=== PATIENT | male | born 1960 | race African-American/Black ===

== ENCOUNTER 2020-06-10 05:33 | Inpatient (IN) | payer OTHER ==
[~2020-06-10] VITALS: Ht 165.1 cm; Wt 102.2 kg
[2020-06-10] MEDS ORDERED: SODIUM CHLORIDE FLUSH 10ML SYR IVF ONE (06:00)
[2020-06-10] MEDS ORDERED: MAALOX/HYOSCYAMINE/LIDOCAINE 45 ML BTL PO ONE (06:00)
[2020-06-10] MEDS ORDERED: ONDANSETRON 2MG/ML, 2ML IVPush ONE (06:00)
[2020-06-10] MEDS ORDERED: MAALOX/HYOSCYAMINE/LIDOCAINE 45 ML BTL ONE (06:05)
[2020-06-10] MEDS ORDERED: ONDANSETRON 2MG/ML, 2ML ONE (06:05)
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
--- NOTE | 2020-06-10 06:35 | NUR ---
PT INCONTINENT OF BOWEL AND BLADDER, PT SKIN CLEANED OF BM BY THIS RN ON ADMISSION. ALL SKIN INTACT. PT PLACED ON NEW ABSORBENT PAD. NEW STATLOCK APPLIED FOR SUPRAPUBIC CRUZ. UA COLLECTED AND SENT TO LAB. LABS DRAWN, INCLUDING X2 SETS OF BLOOD CULTURES. PT PASSED DYSPHAGIA SCREEN PRIOR TO MEDICATION ADMINISTRATION. MEDICATED PER JAN, TOLERATED WELL. PT REPORTS DECREASED SHOULDER PAIN WITH POSITIONING. PT CALM AND COOPERATIVE. MONITORING IN PLACE, CALL LIGHT WITHIN REACH, ALL SAFETY MEASURES IN PLACE.
[2020-06-10 06:44] LABS: BASOPHILS # (AUTO) 0.04 x10^3/uL (0-0.1); BASOPHILS % (AUTO) 0 % (0-1); EOSINOPHILS # (AUTO) 0.19 x10^3/uL (0-0.4); EOSINOPHILS % (AUTO) 2 % (1-7); LYMPHOCYTES # (AUTO) 1.42 x10^3/uL (1-3.4); LYMPHOCYTES % (AUTO) 12 % (22-44); MD NO; MEAN CORPUSCULAR HEMOGLOBIN 28.3 pg (27.5-34.5); MEAN CORPUSCULAR HGB CONC 33.1 g/dL (33.2-36.2); MEAN CORPUSCULAR VOLUME 85.3 fL (81-97); MEAN PLATELET VOLUME 7.9 fL (7.4-10.4); MONOCYTES # (AUTO) 0.43 x10^3/uL (0.2-0.8); MONOCYTES % (AUTO) 4 % (2-9); NEUTROPHILS # (AUTO) 9.66 x10^3/uL (1.8-6.8); NEUTROPHILS % (AUTO) 82 % (42-75); PLATELET COUNT 235 x10^3/uL (130-400); RED BLOOD COUNT 5.27 x10^6/uL (4.38-5.82); RED CELL DISTRIBUTION WIDTH 14.4 % (9.4-14.8)
[2020-06-10] MEDS ORDERED: ZOLP5TAB PO (06:47)
[2020-06-10] MEDS ORDERED: NITR1OIN TP (06:47)
[2020-06-10] MEDS ORDERED: LACT1CAP4 PO (06:47)
[2020-06-10] MEDS ORDERED: DICL100T PO ×2 (06:47)
[2020-06-10] MEDS ORDERED: AMIT10TA PO (06:47)
[2020-06-10] MEDS ORDERED: GABA-826 PO (06:47)
[2020-06-10] MEDS ORDERED: ACET325C6 PO (06:47)
[2020-06-10] MEDS ORDERED: [UNRECOGNIZED DRUG - CODE] PO (06:47)
[2020-06-10] MEDS ORDERED: OXYC10SY PO (06:47)
[2020-06-10] MEDS ORDERED: FAMO-79 PO (06:47)
[2020-06-10] MEDS ORDERED: MIDO5TAB4 PO (06:47)
[2020-06-10] MEDS ORDERED: BACL5TAB PO (06:47)
[2020-06-10] MEDS ORDERED: PREG165T PO (06:47)
[2020-06-10] MEDS ORDERED: CEFTRIAXONE PMX 1GM/50ML 50 ML ONE (06:48)
[2020-06-10 06:51] LABS: MICROSCOPIC INDICATED
[2020-06-10 06:56] LABS: ALANINE AMINOTRANSFERASE 41 U/L (12-78); ALBUMIN 3.7 g/dL (3.4-5.0); ANION GAP 7 mmol/L (5-15); CALCIUM 8.5 mg/dL (8.5-10.1); CHLORIDE 105 mmol/L (98-107); CREATININE 1.32 mg/dL (0.7-1.3)
--- NOTE | 2020-06-10 06:57 | NUR ---
REPORT GIVEN TO JIM TERAN. PT RESTING ON [facility], UPDATED ON POC.
[2020-06-10 07:00] LABS: ALKALINE PHOSPHATASE 93 U/L (45-117); BILIRUBIN,TOTAL 0.3 mg/dL (0.2-1.0); TOTAL PROTEIN 7.8 g/dL (6.4-8.2); TROPONIN I < 0.015 ng/mL (0.000-0.045)
[2020-06-10] MEDS ORDERED: AZITHROMYCIN 500 MG in SODIUM CHLORIDE 0.9% 250 ML IVPB ONE (07:00)
[2020-06-10] MEDS ORDERED: CEFTRIAXONE PMX 1GM/50ML 50 ML IVPB ONE (07:00)
--- NOTE | 2020-06-10 07:02 | NUR ---
REPORT FROM [facility]. PT RESTING, VSS
[2020-06-10] MEDS ORDERED: OMNIPAQUE 350 MG/ML, 100ML BOTTLE ONE (07:25)
--- NOTE | 2020-06-10 08:00 | NUR ---
ASSISTED PT W WATER. VSS. NO NEEDS A THIS TIME
[2020-06-10] MEDS ORDERED: SODIUM CHLORIDE FLUSH 10ML SYR IVF PRN (08:30)
[2020-06-10] MEDS ORDERED: DIPHENHYDRAMINE 25 MG CAPSULE PO PRN (09:00)
[2020-06-10] MEDS ORDERED: hydrALAzine 20 MG/ML, 1ML IVPush PRN (09:00)
[2020-06-10] MEDS ORDERED: POLYETHYLENE GLYCOL 17 GM PACKET PO PRN (09:00)
[2020-06-10] MEDS ORDERED: BISACODYL 10 MG SUPP PR PRN (09:00)
[2020-06-10] MEDS ORDERED: ACETAMINOPHEN 325 MG TABLET PO PRN (09:00)
--- NOTE | 2020-06-10 10:01 | NUR ---
GAVE PT MEAL TRAY. PT DOES NOT NEED ASSISTANCE W EATING.
[2020-06-10] MEDS ORDERED: FAMOTIDINE 20 MG TABLET ONE (10:03)
[2020-06-10] MEDS: FAMOTIDINE 20 MG TABLET PO SCH (10:06)
[2020-06-10] MEDS: LACTATED RINGERS 1,000 ML IV SCH (10:06)
[2020-06-10] MEDS: LACTULOSE 10 GM/15 ML UDC PO SCH ×2 (10:06→21:00)
[2020-06-10] MEDS ORDERED: MORPHINE SULFATE 4 MG/ML, 1ML ONE (10:18)
[2020-06-10] MEDS ORDERED: MORPHINE SULFATE 4 MG/ML, 1ML IVPush PRN (10:30)
--- NOTE | 2020-06-10 10:48 | NUR ---
PT CO PAIN IN NECK AND SHOULDERS WHICH IS CHRONIC. MEDICATED FOR PAIN.
--- NOTE | 2020-06-10 11:02 | NUR ---
PT RELIEVED OF PAIN, RESTING W EYES CLOSED. VSS
--- NOTE | 2020-06-10 11:22 | NUR ---
PT TRANSFERED TO HOSPITAL BED FOR COMFORT.
--- NOTE | 2020-06-10 13:32 | NUR ---
TASK RN: MEAL TRAY ORDERED FOR PT. PT CURRENTLY DOZING IN QUIET, DARK ROOM. PT AWARE WE ARE WAITING FOR ADMISSION. PT ON CONT BP AND SPO2 MONITORS. CALL LIGHT WITHIN REACH. WILL CONT TO MONITOR PT.
--- NOTE | 2020-06-10 14:36 | NUR ---
REPORT TO JOSE R
[2020-06-10 14:57] VITALS: BP 120/84
[2020-06-10 18:17] VITALS: BP 118/81
[2020-06-10 19:15] VITALS: BP 154/99
[2020-06-10] MEDS: AMITRIPTYLINE 10 MG TABLET PO SCH (20:41)
[2020-06-11 00:16] VITALS: BP 137/87
[2020-06-11] MEDS: LACTATED RINGERS 1,000 ML IV SCH (00:18)
[2020-06-11] MEDS: PINK LADY ENEMA 490 ML BOTTLE PR SCH ×2 (00:18→07:51)
[2020-06-11 06:04] LABS: BASOPHILS # (AUTO) 0.03 x10^3/uL (0-0.1); BASOPHILS % (AUTO) 0 % (0-1); EOSINOPHILS # (AUTO) 0.17 x10^3/uL (0-0.4); EOSINOPHILS % (AUTO) 2 % (1-7); LYMPHOCYTES # (AUTO) 1.59 x10^3/uL (1-3.4); LYMPHOCYTES % (AUTO) 20 % (22-44); MD NO; MEAN CORPUSCULAR HGB CONC 32.5 g/dL (33.2-36.2); MEAN CORPUSCULAR VOLUME 86.3 fL (81-97); MEAN PLATELET VOLUME 7.8 fL (7.4-10.4); MONOCYTES # (AUTO) 0.44 x10^3/uL (0.2-0.8); MONOCYTES % (AUTO) 5 % (2-9); NEUTROPHILS # (AUTO) 5.88 x10^3/uL (1.8-6.8); NEUTROPHILS % (AUTO) 73 % (42-75); PLATELET COUNT 214 x10^3/uL (130-400); RED BLOOD COUNT 4.77 x10^6/uL (4.38-5.82); RED CELL DISTRIBUTION WIDTH 13.9 % (9.4-14.8)
[2020-06-11 06:06] LABS: ANION GAP 6 mmol/L (5-15); CALCIUM 8.1 mg/dL (8.5-10.1); CHLORIDE 109 mmol/L (98-107); CREATININE 0.86 mg/dL (0.7-1.3)
[2020-06-11] MEDS: LACTULOSE 10 GM/15 ML UDC PO SCH ×2 (07:51→20:24)
[2020-06-11] MEDS: FAMOTIDINE 20 MG TABLET PO SCH (07:59)
[2020-06-11] MEDS: CEFTRIAXONE PMX 1GM/50ML 50 ML IV SCH (07:59)
[2020-06-11 08:04] VITALS: BP 161/77
[2020-06-11 15:19] VITALS: BP 149/96
[2020-06-11 18:33] VITALS: BP 150/88
[2020-06-11] MEDS: AMITRIPTYLINE 10 MG TABLET PO SCH (20:23)
[2020-06-12 00:12] VITALS: BP 151/92
[2020-06-12 06:47] VITALS: BP 142/82
[2020-06-12] MEDS ORDERED: LACT10SO24 PO (08:11)
[2020-06-12] MEDS ORDERED: BISA10SU4 PR (08:11)
[2020-06-12] MEDS ORDERED: CEPH-368 PO (08:13)
[2020-06-12] MEDS: CEFTRIAXONE PMX 1GM/50ML 50 ML IV SCH (08:16)
[2020-06-12] MEDS: PINK LADY ENEMA 490 ML BOTTLE PR SCH (08:18)
[2020-06-12 08:31] VITALS: BP 155/95
[2020-06-12] MEDS: FAMOTIDINE 20 MG TABLET PO SCH (10:41)
[2020-06-12] MEDS: LACTULOSE 10 GM/15 ML UDC PO SCH (10:41)
[2020-06-12 13:01] VITALS: BP 167/100
== END 2020-06-12 16:21 | disposition home or self-care (01) | DRG 698 ==
LOC: ED 06:39 → SUATTDRO 08:36 → EDIP 08:37 → 3N 14:46
PROVIDERS: ADMIT Hospitalist; ATTEND Hospitalist
DX: T83.511A Infection and inflammatory reaction due to indwelling urethral catheter, initial encounter (principal); G82.50 Quadriplegia, unspecified; N17.0 Acute kidney failure with tubular necrosis; J18.9 Pneumonia, unspecified organism; J98.11 Atelectasis; J47.0 Bronchiectasis with acute lower respiratory infection; E86.0 Dehydration; F17.210 Nicotine dependence, cigarettes, uncomplicated; K59.00 Constipation, unspecified; N30.90 Cystitis, unspecified without hematuria; B95.2 Enterococcus as the cause of diseases classified elsewhere; G90.9 Disorder of the autonomic nervous system, unspecified; Y84.6 Urinary catheterization as the cause of abnormal reaction of the patient, or of later complication, without mention of misadventure at the time of the procedure; Z79.899 Other long term (current) drug therapy
CPT/HCPCS: 36415; 71045; 74177; 80048; 80053; 81001; 83605; 83690; 83880; 84484; 85025; 87040; 87077; 87086; 87186; 93005; 96365; 96375; 99285; G0378; J0456; J0696; J2405; Q9967; J2270; J7050; J7120; Q0163

== ENCOUNTER 2020-08-01 10:52 | Emergency (ER) | payer OTHER ==
[~2020-08-01] VITALS: Ht 165.1 cm; Wt 92.3 kg
[~2020-08-01 10:52] MED LIST: ACET325C6 PO; AMIT10TA PO; BACL5TAB PO; BISA10SU4 PR; CEPH-368 PO; DICL100T PO; FAMO-79 PO; GABA-826 PO; LACT10SO24 PO; LACT1CAP4 PO; MIDO5TAB4 PO; NITR1OIN TP; OXYC10SY PO; PREG165T PO; ZOLP5TAB PO; [UNRECOGNIZED DRUG - CODE] PO
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
[2020-08-01] MEDS ORDERED: SODIUM CHLORIDE FLUSH 10ML SYR IVF ONE (11:30)
[2020-08-01 12:10] LABS: BASOPHILS # (AUTO) 0.03 x10^3/uL (0-0.1); BASOPHILS % (AUTO) 0 % (0-1); EOSINOPHILS # (AUTO) 0.14 x10^3/uL (0-0.4); EOSINOPHILS % (AUTO) 2 % (1-7); LYMPHOCYTES # (AUTO) 1.46 x10^3/uL (1-3.4); LYMPHOCYTES % (AUTO) 16 % (22-44); MD NO; MEAN CORPUSCULAR HEMOGLOBIN 28.2 pg (27.5-34.5); MEAN CORPUSCULAR HGB CONC 32.3 g/dL (33.2-36.2); MEAN PLATELET VOLUME 7.6 fL (7.4-10.4); MONOCYTES % (AUTO) 4 % (2-9); NEUTROPHILS # (AUTO) 7.12 x10^3/uL (1.8-6.8); NEUTROPHILS % (AUTO) 78 % (42-75); PLATELET COUNT 260 x10^3/uL (130-400); RED BLOOD COUNT 5.59 x10^6/uL (4.38-5.82); RED CELL DISTRIBUTION WIDTH 15.3 % (9.4-14.8)
--- NOTE | 2020-08-01 12:13 | NUR ---
PT BACK FROM RAD
[2020-08-01 12:15] LABS: ALBUMIN 3.6 g/dL (3.4-5.0); ANION GAP 8 mmol/L (5-15); CALCIUM 8.6 mg/dL (8.5-10.1); CHLORIDE 110 mmol/L (98-107)
[2020-08-01 12:20] LABS: ALANINE AMINOTRANSFERASE 78 U/L (12-78); ALKALINE PHOSPHATASE 111 U/L (45-117); BILIRUBIN,TOTAL 0.3 mg/dL (0.2-1.0); CREATININE 0.93 mg/dL (0.7-1.3); TOTAL PROTEIN 7.8 g/dL (6.4-8.2)
[2020-08-01 12:55] LABS: MICROSCOPIC INDICATED
[2020-08-01 13:04] VITALS: BP 117/55
== END 2020-08-01 15:10 | disposition home or self-care (01) ==
LOC: ED 11:44
DX: K59.00 Constipation, unspecified (principal); N30.01 Acute cystitis with hematuria; K56.0 Paralytic ileus; G82.20 Paraplegia, unspecified; F17.210 Nicotine dependence, cigarettes, uncomplicated
CPT/HCPCS: 36415; 74022; 80053; 81001; 85025; 87077; 87086; 87186; 99284

== ENCOUNTER 2020-09-11 21:34 | Inpatient (IN) | payer OTHER ==
[~2020-09-11] VITALS: Ht 175.3 cm; Wt 110.5 kg
[2020-09-11 22:14] LABS: BASOPHILS % (AUTO) 1 % (0-1); EOSINOPHILS % (AUTO) 4 % (1-7); LYMPHOCYTES % (AUTO) 29 % (22-44); MEAN CORPUSCULAR HEMOGLOBIN 28.7 pg (27.5-34.5); MEAN CORPUSCULAR HGB CONC 33.4 g/dL (33.2-36.2); MEAN PLATELET VOLUME 7.3 fL (7.4-10.4); MONOCYTES % (AUTO) 8 % (2-9); NEUTROPHILS % (AUTO) 58 % (42-75); PLATELET COUNT 230 x10^3/uL (130-400); RED BLOOD COUNT 4.98 x10^6/uL (4.38-5.82); RED CELL DISTRIBUTION WIDTH 14.5 % (9.4-14.8)
[2020-09-11 22:15] LABS: MD NO
[2020-09-11 22:26] LABS: ALANINE AMINOTRANSFERASE 38 U/L (12-78); ALBUMIN 3.3 g/dL (3.4-5.0); ANION GAP 4 mmol/L (5-15); CALCIUM 8.5 mg/dL (8.5-10.1); CHLORIDE 107 mmol/L (98-107); CREATININE 0.92 mg/dL (0.7-1.3)
[2020-09-11 22:31] LABS: ALKALINE PHOSPHATASE 108 U/L (45-117); BILIRUBIN,TOTAL 0.1 mg/dL (0.2-1.0); TOTAL PROTEIN 6.9 g/dL (6.4-8.2); TROPONIN I < 0.015 ng/mL (0.000-0.045)
--- NOTE | 2020-09-11 22:51 | NUR ---
PT RESTING IN [facility], NO COMPLAINTS AT THIS TIME.
--- NOTE | 2020-09-11 22:53 | NUR ---
PT'S DAUGHTER UPDATED PER PT'S REQUEST. STAR (DAUGHTER) - [phone]
--- NOTE | 2020-09-11 22:58 | NUR ---
THIS RN ATTEMPTED MEDICATION RECONCILE WITH PT AND DAUGHTER, BOTH ARE POOR HISTORIANS. PT'S DAUGHTER STATES "HE IS ON LIKE 30 PILLS, BUT I DON'T REMEMBER THEM ALL".
--- NOTE | 2020-09-11 22:59 | NUR ---
PER PT'S DAUGHTER SHE TOOK PT'S BP AND FOUND IT TO BE 70S SYSTOLIC AND PT TO BE "SLEEPY". PT'S DAUGHTER GAVE PATIENT UNKNOWN DOSE OF MIDODRINE AND BP WENT UP TO 80S SYSTOLIC. PER PT'S DAUGHTER SHE THEN CALLED EMS. PER EMS THEY GAVE PT 0.5 OF NARCAN DUE TO A GCS OF 6, AFTER NARCAN HE BECAME A&OX4.
--- NOTE | 2020-09-11 23:35 | NUR ---
PT BACK FROM CT VIA [facility]. PT RESTING IN [facility], NO COMPLAINTS AT THIS TIME.
[2020-09-12 00:17] LABS: MICROSCOPIC INDICATED
[2020-09-12 00:28] LABS: AMPHETAMINE SCREEN, URINE Negative (Negative); BARBITURATE SCREEN, URINE Negative (Negative); BENZODIAZEPINE SCREEN, URINE Negative (Negative); CANNABINOID SCREEN, URINE Negative (Negative); COCAINE SCREEN, URINE Negative (Negative); METHADONE SCREEN, URINE Negative (Negative); OPIATE SCREEN, URINE Negative (Negative)
--- NOTE | 2020-09-12 00:47 | NUR ---
PT RESTING IN [facility], NO OTHER COMPLAINTS AT THIS TIME.
[2020-09-12] MEDS ORDERED: PROMETHAZINE 25 MG/ML, 1ML IM PRN (01:30)
[2020-09-12] MEDS ORDERED: ONDANSETRON ODT 4 MG PO PRN (01:30)
[2020-09-12] MEDS ORDERED: ONDANSETRON 2MG/ML, 2ML IVPush PRN (01:30)
[2020-09-12] MEDS ORDERED: BISACODYL 10 MG SUPP PR PRN (01:30)
[2020-09-12] MEDS ORDERED: ACETAMINOPHEN 325 MG TABLET PO PRN (01:30)
[2020-09-12] MEDS ORDERED: POLYETHYLENE GLYCOL 17 GM PACKET PO PRN (01:30)
[2020-09-12 03:44] VITALS: BP 127/80
[2020-09-12] MEDS: ERTAPENEM 1 GM in SODIUM CHLORIDE 0.9% 50 ML IV SCH (03:49)
[2020-09-12] MEDS: ENOXAPARIN 40 MG/0.4 ML SQ SCH (03:49)
[2020-09-12] MEDS: SODIUM CHLORIDE 0.9% 1,000 ML IV SCH ×2 (03:50→11:20)
[2020-09-12] MEDS: OXYcodone IR 5MG TABLET PO PRN ×4 (05:52→20:53)
[2020-09-12 06:09] LABS: BASOPHILS % (AUTO) 1 % (0-1); EOSINOPHILS % (AUTO) 3 % (1-7); LYMPHOCYTES % (AUTO) 17 % (22-44); MEAN CORPUSCULAR HEMOGLOBIN 28.2 pg (27.5-34.5); MEAN PLATELET VOLUME 7.4 fL (7.4-10.4); MONOCYTES % (AUTO) 5 % (2-9); NEUTROPHILS % (AUTO) 75 % (42-75); PLATELET COUNT 237 x10^3/uL (130-400); RED BLOOD COUNT 5.08 x10^6/uL (4.38-5.82); RED CELL DISTRIBUTION WIDTH 14.9 % (9.4-14.8)
[2020-09-12 06:13] LABS: MD NO
[2020-09-12 06:25] LABS: CALCIUM 8.7 mg/dL (8.5-10.1); CHLORIDE 108 mmol/L (98-107)
[2020-09-12 06:39] LABS: ALANINE AMINOTRANSFERASE 36 U/L (12-78); ALBUMIN 3.3 g/dL (3.4-5.0); ALKALINE PHOSPHATASE 114 U/L (45-117); ANION GAP 4 mmol/L (5-15); BILIRUBIN,TOTAL 0.2 mg/dL (0.2-1.0); CREATININE 0.82 mg/dL (0.7-1.3); TOTAL PROTEIN 6.9 g/dL (6.4-8.2)
[2020-09-12 07:38] VITALS: BP 137/89
[2020-09-12] MEDS: SENNA/DOCUSATE TABLET PO SCH (08:44)
[2020-09-12] MEDS: MIDODRINE 5 MG TABLET PO SCH (08:44)
[2020-09-12] MEDS: GABAPENTIN 100 MG CAPSULE PO SCH (08:45)
[2020-09-12] MEDS: FAMOTIDINE 20 MG TABLET PO SCH (08:45)
[2020-09-12 12:23] VITALS: BP 166/103
[2020-09-12 12:44] VITALS: BP 177/103
[2020-09-12] MEDS: LABETALOL 5MG/ML, 20ML IVPush PRN (12:45)
[2020-09-12 13:02] VITALS: BP 121/85
[2020-09-12] MEDS: INSULIN LISPRO 100 UNITS/ML, PEN SQ-INSULIN SCH ×2 (16:25→20:10)
[2020-09-12 19:42] VITALS: BP 154/97
[2020-09-12] MEDS ORDERED: AMITRIPTYLINE 10 MG TABLET PO SCH (21:00)
[2020-09-13 00:26] VITALS: BP 135/87
[2020-09-13] MEDS: ENOXAPARIN 40 MG/0.4 ML SQ SCH (01:52)
[2020-09-13] MEDS: ERTAPENEM 1 GM in SODIUM CHLORIDE 0.9% 50 ML IV SCH (01:52)
[2020-09-13] MEDS: OXYcodone IR 5MG TABLET PO PRN ×2 (04:31→08:43)
[2020-09-13 07:09] VITALS: BP 157/105
[2020-09-13 07:58] VITALS: BP 158/98
[2020-09-13] MEDS: INSULIN LISPRO 100 UNITS/ML, PEN SQ-INSULIN SCH ×3 (08:03→16:00)
[2020-09-13] MEDS: MIDODRINE 5 MG TABLET PO SCH (08:04)
[2020-09-13] MEDS: GABAPENTIN 100 MG CAPSULE PO SCH (08:42)
[2020-09-13] MEDS: FAMOTIDINE 20 MG TABLET PO SCH (08:42)
[2020-09-13] MEDS: SENNA/DOCUSATE TABLET PO SCH (08:43)
[2020-09-13 11:16] VITALS: BP 152/100
[2020-09-13] MEDS: LABETALOL 5MG/ML, 20ML IVPush PRN (11:22)
[2020-09-13 12:00] VITALS: BP 152/100
[2020-09-13 12:34] VITALS: BP 136/88
[2020-09-13] MEDS ORDERED: CEFD300C37 PO (13:06)
[2020-09-13] MEDS ORDERED: CEFDINIR 300 MG CAPSULE PO SCH (21:00)
== END 2020-09-13 18:03 | disposition home or self-care (01) | DRG 70 ==
LOC: ED 23:22 → EDIP 09-12 01:03 → 4WST 09-12 02:03
PROVIDERS: ADMIT Internal Medicine; ATTEND Internal Medicine
PROC: 0T9B70Z Drainage of Bladder with Drainage Device, Via Natural or Artificial Opening (ICD-10-PCS; principal; 2020-09-12)
DX: G93.41 Metabolic encephalopathy (principal); J18.9 Pneumonia, unspecified organism; G82.54 Quadriplegia, C5-C7 incomplete; N39.0 Urinary tract infection, site not specified; E11.43 Type 2 diabetes mellitus with diabetic autonomic (poly)neuropathy; E11.65 Type 2 diabetes mellitus with hyperglycemia; F17.210 Nicotine dependence, cigarettes, uncomplicated; G89.29 Other chronic pain; K59.00 Constipation, unspecified; N31.9 Neuromuscular dysfunction of bladder, unspecified; Z87.440 Personal history of urinary (tract) infections; Z93.59 Other cystostomy status; Z79.84 Long term (current) use of oral hypoglycemic drugs
CPT/HCPCS: 36415; 70450; 71045; 80053; 80307; 81001; 82962; 83036; 83735; 84443; 84484; 85025; 87040; 87086; 87186; 93005; G0378; J1335; J1650; J1815; J7030

== ENCOUNTER 2020-09-25 23:29 | Inpatient (IN) | payer OTHER ==
[~2020-09-25] VITALS: Ht 165.1 cm; Wt 114.9 kg
[~2020-09-25 23:29] MED LIST changes: +CEFD300C37 PO
[2020-09-25] MEDS ORDERED: HYDROmorphone 1 MG/ML, 1ML INJ ONE (23:59)
[2020-09-25] MEDS ORDERED: ONDANSETRON 2MG/ML, 2ML ONE (23:59)
[2020-09-26] VITALS (7 sets, daily range): BP systolic 107–165; BP diastolic 76–119
[2020-09-26] MEDS ORDERED: HYDROmorphone 2 MG/ML, 1ML IVPush PRN
[2020-09-26] MEDS ORDERED: ONDANSETRON 2MG/ML, 2ML IVPush ONE
[2020-09-26 00:21] LABS: ALANINE AMINOTRANSFERASE 36 U/L (12-78); ALBUMIN 3.9 g/dL (3.4-5.0); ANION GAP 8 mmol/L (5-15); CALCIUM 9.1 mg/dL (8.5-10.1); CHLORIDE 107 mmol/L (98-107); CREATININE 1.38 mg/dL (0.7-1.3)
[2020-09-26 00:23] LABS: ALKALINE PHOSPHATASE 110 U/L (45-117); BILIRUBIN,TOTAL 0.3 mg/dL (0.2-1.0)
[2020-09-26 00:27] LABS: MICROSCOPIC AUTO
[2020-09-26 00:33] LABS: BASOPHILS % (AUTO) 1 % (0-1); EOSINOPHILS % (AUTO) 2 % (1-7); LYMPHOCYTES % (AUTO) 16 % (22-44); MEAN CORPUSCULAR HEMOGLOBIN 29.1 pg (27.5-34.5); MEAN CORPUSCULAR HGB CONC 33.9 g/dL (33.2-36.2); MEAN PLATELET VOLUME 7.5 fL (7.4-10.4); MONOCYTES % (AUTO) 4 % (2-9); NEUTROPHILS % (AUTO) 77 % (42-75); PLATELET COUNT 275 x10^3/uL (130-400); RED BLOOD COUNT 5.21 x10^6/uL (4.38-5.82); RED CELL DISTRIBUTION WIDTH 14.9 % (9.4-14.8)
[2020-09-26 00:35] LABS: MD NO
--- NOTE | 2020-09-26 00:53 | NUR ---
PT BIB [facility] TONIGHT FOR ABD PAIN. PT REPORTS HE HAS NOT HAD A BOWEL MOVEMENT IN TWO DAYS. PT'S ABD IS DISTENDED. [employer] ON. SINUS TACH NOTED. CALL LIGHT IN PLACE. WILL CONTINUE TO MONITOR.
--- NOTE | 2020-09-26 01:08 | NUR ---
PT BACK FROM CT. VS STABLE. NO ACUTE DISTRESS NOTED. CALL LIGHT IN PLACE. WILL CONTINUE TO MONITOR.
[2020-09-26] MEDS ORDERED: OMNIPAQUE 350 MG/ML, 100ML BOTTLE ONE (01:13)
[2020-09-26] MEDS ORDERED: CEFTRIAXONE PMX 1GM/50ML 50 ML IV ONE (02:00)
[2020-09-26] MEDS ORDERED: PINK LADY ENEMA 490 ML BOTTLE PR ONE (02:00)
[2020-09-26] MEDS ORDERED: METHYLNALTREXONE 12 MG/0.6 ML SYR SQ ONE ×2 (02:00→02:12)
[2020-09-26] MEDS ORDERED: AZITHROMYCIN 500 MG in SODIUM CHLORIDE 0.9% 250 ML IV ONE (02:00)
--- NOTE | 2020-09-26 02:04 | NUR ---
REPORT GIVEN TO JIM PRICE
--- NOTE | 2020-09-26 02:06 | NUR ---
REPORT RECEIVED FROM JIM BUTLER. ASSUMED CARE OF PT
[2020-09-26] MEDS ORDERED: CEFTRIAXONE PMX 1GM/50ML 50 ML ONE (02:12)
--- NOTE | 2020-09-26 02:32 | NUR ---
PT MEDICATED PER EMAR. ABX STARTED. 5 RIGHTS ADDRESSED. ALL VITALS STABLE. PT PROVIDED WITH BLANKETS AND WARMER. PT DENIES ANY NEEDS AT THIS TIME.
--- NOTE | 2020-09-26 02:53 | NUR ---
REPORT GIVEN TO JIM CONTE.
[2020-09-26] MEDS ORDERED: ENALAPRILAT 1.25 MG/ML, 2ML IVPush PRN (03:00)
[2020-09-26] MEDS: SODIUM CHLORIDE 0.9% 1,000 ML IV SCH ×2 (03:00→11:48)
[2020-09-26] MEDS ORDERED: GUAIFENESIN/DM 200-20MG, 10ML UDC PO PRN (03:00)
[2020-09-26] MEDS ORDERED: METHOCARBAMOL 500 MG TABLET PO PRN (03:00)
[2020-09-26] MEDS ORDERED: ONDANSETRON 2MG/ML, 2ML IVPush PRN (03:00)
[2020-09-26] MEDS ORDERED: TEMAZEPAM 15 MG CAPSULE PO PRN (03:00)
[2020-09-26] MEDS: ENOXAPARIN 40 MG/0.4 ML SQ SCH (04:30)
[2020-09-26] MEDS: SENNA/DOCUSATE TABLET PO SCH ×3 (04:30→19:31)
[2020-09-26] MEDS: POLYETHYLENE GLYCOL 17 GM PACKET PO SCH ×3 (04:30→19:30)
[2020-09-26] MEDS: AZITHROMYCIN 500 MG TABLET PO SCH (09:20)
[2020-09-26] MEDS: LACTULOSE 10 GM/15 ML UDC PO SCH ×2 (09:21→19:30)
[2020-09-26] MEDS: FAMOTIDINE 20 MG TABLET PO SCH ×2 (09:21→19:34)
[2020-09-26] MEDS: DEXAMETHASONE 1 MG TABLET PO SCH ×2 (09:21→17:05)
[2020-09-26] MEDS: MIDODRINE 5 MG TABLET PO SCH (09:21)
[2020-09-26] MEDS: KETOROLAC 30 MG/1 ML IV PRN ×2 (11:47→17:05)
[2020-09-26] MEDS ORDERED: BISACODYL 10 MG SUPP PR PRN (15:00)
[2020-09-26] MEDS: OXYcodone 5 MG/5 ML ORAL.SOL UDC PO PRN (23:07)
[2020-09-27 00:52] VITALS: BP 163/115
[2020-09-27] MEDS ORDERED: CEFTRIAXONE PMX 1GM/50ML 50 ML IV SCH (02:00)
[2020-09-27] MEDS: ENOXAPARIN 40 MG/0.4 ML SQ SCH (04:38)
[2020-09-27] MEDS: SODIUM CHLORIDE 0.9% 1,000 ML IV SCH ×2 (04:39→15:42)
[2020-09-27 06:55] VITALS: BP_SYST 145; BP_SYST 150; BP_DIAS 100; BP_DIAS 74
[2020-09-27 07:56] LABS: BASOPHILS % (AUTO) 1 % (0-1); EOSINOPHILS % (AUTO) 0 % (1-7); LYMPHOCYTES % (AUTO) 14 % (22-44); MEAN CORPUSCULAR HGB CONC 33.4 g/dL (33.2-36.2); MEAN PLATELET VOLUME 7.4 fL (7.4-10.4); MONOCYTES % (AUTO) 5 % (2-9); NEUTROPHILS % (AUTO) 80 % (42-75); PLATELET COUNT 266 x10^3/uL (130-400); RED BLOOD COUNT 4.86 x10^6/uL (4.38-5.82); RED CELL DISTRIBUTION WIDTH 14.3 % (9.4-14.8)
[2020-09-27 08:03] LABS: CALCIUM 8.9 mg/dL (8.5-10.1); CHLORIDE 109 mmol/L (98-107)
[2020-09-27 08:06] LABS: ANION GAP 8 mmol/L (5-15); CREATININE 0.84 mg/dL (0.7-1.3)
[2020-09-27 08:21] LABS: MD SCAN
[2020-09-27] MEDS: POLYETHYLENE GLYCOL 17 GM PACKET PO SCH (09:00)
[2020-09-27] MEDS: FAMOTIDINE 20 MG TABLET PO SCH (09:37)
[2020-09-27] MEDS: AZITHROMYCIN 500 MG TABLET PO SCH (09:37)
[2020-09-27] MEDS: LACTULOSE 10 GM/15 ML UDC PO SCH (09:37)
[2020-09-27] MEDS: SENNA/DOCUSATE TABLET PO SCH (09:37)
[2020-09-27] MEDS: MIDODRINE 5 MG TABLET PO SCH (09:37)
[2020-09-27] MEDS: DEXAMETHASONE 1 MG TABLET PO SCH ×2 (09:38→17:21)
[2020-09-27] MEDS: OXYcodone 5 MG/5 ML ORAL.SOL UDC PO PRN ×2 (11:06→17:21)
[2020-09-27] MEDS ORDERED: POLY17PO5 PO (12:17)
[2020-09-27 12:25] VITALS: BP 154/96
[2020-09-27] MEDS ORDERED: CEFD300C37 PO (18:12)
== END 2020-09-27 18:32 | disposition home or self-care (01) | DRG 193 ==
LOC: ED 09-26 01:13 → EDIP 09-26 02:16 → 4WST 09-26 03:27
PROVIDERS: ADMIT Internal Medicine; ATTEND Family Medicine
PROC: 0T9B70Z Drainage of Bladder with Drainage Device, Via Natural or Artificial Opening (ICD-10-PCS; principal; 2020-09-26)
DX: J18.9 Pneumonia, unspecified organism (principal); G82.50 Quadriplegia, unspecified; J96.01 Acute respiratory failure with hypoxia; E87.2 Acidosis; J98.11 Atelectasis; N17.9 Acute kidney failure, unspecified; N39.0 Urinary tract infection, site not specified; E11.65 Type 2 diabetes mellitus with hyperglycemia; Z20.828 Contact with and (suspected) exposure to other viral communicable diseases; F17.210 Nicotine dependence, cigarettes, uncomplicated; I10 Essential (primary) hypertension; K44.9 Diaphragmatic hernia without obstruction or gangrene; K59.00 Constipation, unspecified; Z79.899 Other long term (current) drug therapy; Z79.84 Long term (current) use of oral hypoglycemic drugs
CPT/HCPCS: 36415; 71045; 74177; 80048; 80053; 81001; 83605; 83690; 83735; 84100; 85025; 87040; 87086; 87106; 93005; 96374; 96375; 99285; G0378; J0456; J0696; J1170; J1650; J1885; J2405; Q9967; J7030; J7050; U0003

== ENCOUNTER 2020-11-05 23:28 | Inpatient (IN) | payer MEDICAID, OTHER ==
[~2020-11-05] VITALS: Ht 165.1 cm; Wt 88.6 kg
[~2020-11-05 23:28] MED LIST changes: +POLY17PO5 PO
--- NOTE | 2020-11-05 23:39 | NUR ---
TASK RN: 60M BIB EMS FROM HOME, CAREGIVER FOUND PT UNRESPONSIVE AND HYPOTENSIVE. PER EMS REPORT PT PUPILS 1CM AND NONREACTIVE, PT GIVEN 3 DOSES INTRANASAL NARCAN PRIOR TO ARRIVAL AND 300ML OF NS. UPON ARRIVAL TO ED, PT AWAKENING AND REPSONSIVE TO VERBAL STIMULI. PT HAS SUPRAPUBIC CATH IN PLACE PER EMS IT IS IRRIGATED NIGHTLY BY CAREGIVER. PT CONNECTED TO ALL MONITORING VSS, NO LONGER REQ O2. PT INTERACTING WITH STAFF AND NOW REQUESTING PAIN MEDICATIONS.
--- NOTE | 2020-11-05 23:57 | NUR ---
fluids running. UA sent to lab. vss. Pt complaining of pain and requesting pain meds. MD aware. waiting for orders
[2020-11-06] MEDS ORDERED: SODIUM CHLORIDE 0.9% 1,000ML IVBOLUS ONE
[2020-11-06 00:29] LABS: MICROSCOPIC INDICATED
[2020-11-06 00:36] LABS: BASOPHILS % (AUTO) 1 % (0-1); EOSINOPHILS % (AUTO) 3 % (1-7); LYMPHOCYTES % (AUTO) 31 % (22-44); MEAN CORPUSCULAR HEMOGLOBIN 29.1 pg (27.5-34.5); MEAN CORPUSCULAR HGB CONC 33.6 g/dL (33.2-36.2); MEAN PLATELET VOLUME 7.1 fL (7.4-10.4); MONOCYTES % (AUTO) 7 % (2-9); NEUTROPHILS % (AUTO) 59 % (42-75); PLATELET COUNT 236 x10^3/uL (130-400); RED CELL DISTRIBUTION WIDTH 14.6 % (9.4-14.8)
--- NOTE | 2020-11-06 00:38 | NUR ---
LABS DRAWN. FLUIDS DONE. WAITING FOR RESULTS. PT STILL REQUESTING PAIN MEDS. WAITING FOR ORDERS
[2020-11-06 00:47] LABS: ALANINE AMINOTRANSFERASE 32 U/L (12-78); ALBUMIN 3.4 g/dL (3.4-5.0); ANION GAP 4 mmol/L (5-15); CALCIUM 8.5 mg/dL (8.5-10.1); CHLORIDE 111 mmol/L (98-107); CREATININE 1.07 mg/dL (0.7-1.3); MD NO
[2020-11-06 00:49] LABS: ALKALINE PHOSPHATASE 73 U/L (45-117); BILIRUBIN,TOTAL 0.2 mg/dL (0.2-1.0); TOTAL PROTEIN 6.8 g/dL (6.4-8.2)
[2020-11-06] MEDS ORDERED: MORPHINE SULFATE 4 MG/ML, 1ML ONE ×3 (00:55→23:02)
[2020-11-06] MEDS: MORPHINE SULFATE 4 MG/ML, 1ML IVPush PRN ×2 (00:57→01:44)
[2020-11-06] MEDS ORDERED: ONDANSETRON 2MG/ML, 2ML IVPush ONE (01:00)
--- NOTE | 2020-11-06 01:17 | NUR ---
PT TO CT. REPORT TO ALEBRT FERNANDEZ
--- NOTE | 2020-11-06 01:29 | NUR ---
PT BACK FROM CT AND IS IN ROOM 17. VSS CONNECTED TO ALL MONITORING
[2020-11-06] MEDS ORDERED: ONDANSETRON 2MG/ML, 2ML ONE (01:40)
--- NOTE | 2020-11-06 01:40 | NUR ---
PT MOANING AND COMPLAINING OF SEVERE PAIN IN R ARM AND HIS TEETH. PT ASKING FOR PAIN MEDS AT THIS TIME.
--- NOTE | 2020-11-06 01:44 | NUR ---
PT MEDICATED PER JAN FOR PAIN. TOLERATED WELL
--- NOTE | 2020-11-06 02:31 | NUR ---
PT RESTING COMFORTABLY ON GURNEY NADN AT THIS TIME
[2020-11-06] MEDS ORDERED: OMNIPAQUE 350 MG/ML, 100ML BOTTLE ONE (02:39)
[2020-11-06] MEDS ORDERED: LEVOFLOXACIN/PMX 750MG/150ML 150 ML ONE (02:54)
[2020-11-06] MEDS ORDERED: LEVOFLOXACIN/PMX 750MG/150ML 150 ML IV ONE (03:00)
--- NOTE | 2020-11-06 03:03 | NUR ---
IV ABX STARTED, CULTURES DRAWN X2 PRIOR TO START
--- NOTE | 2020-11-06 03:29 | NUR ---
HOSPTIALIST AT BEDSIDE FOR ADMIT PT NOW READY TO BE TRANSFERED TO ROOM 435. REPORT CALLED TO RONALD
[2020-11-06] MEDS ORDERED: BISACODYL 10 MG SUPP PR PRN (03:30)
[2020-11-06] MEDS ORDERED: POLYETHYLENE GLYCOL 17 GM PACKET PO PRN (03:30)
[2020-11-06] MEDS ORDERED: ACETAMINOPHEN 325 MG TABLET PO PRN (03:30)
[2020-11-06] MEDS: ENOXAPARIN 40 MG/0.4 ML SQ SCH (03:30)
[2020-11-06] MEDS ORDERED: hydrALAzine 20 MG/ML, 1ML IVPush PRN (03:30)
[2020-11-06] MEDS ORDERED: ONDANSETRON 2MG/ML, 2ML IVPush PRN (03:30)
[2020-11-06 06:00] VITALS: BP 114/78
[2020-11-06 08:16] VITALS: BP 126/87
[2020-11-06] MEDS: SENNA/DOCUSATE TABLET PO SCH (09:00)
[2020-11-06 13:11] VITALS: BP 120/81
[2020-11-06 13:33] LABS: BASOPHILS % (AUTO) 1 % (0-1); EOSINOPHILS % (AUTO) 3 % (1-7); LYMPHOCYTES % (AUTO) 17 % (22-44); MEAN CORPUSCULAR HEMOGLOBIN 29.2 pg (27.5-34.5); MEAN CORPUSCULAR HGB CONC 33.7 g/dL (33.2-36.2); MEAN PLATELET VOLUME 7.1 fL (7.4-10.4); MONOCYTES % (AUTO) 5 % (2-9); NEUTROPHILS % (AUTO) 74 % (42-75); PLATELET COUNT 277 x10^3/uL (130-400); RED BLOOD COUNT 5.05 x10^6/uL (4.38-5.82); RED CELL DISTRIBUTION WIDTH 14.5 % (9.4-14.8)
[2020-11-06 13:39] LABS: MD NO
[2020-11-06] MEDS: morphine SULFATE 10 MG/ML, 1ML IVPush PRN ×3 (16:45→23:07)
[2020-11-06 19:48] VITALS: BP 125/85
[2020-11-06] MEDS: AMOXICILLIN/CLAV 875-125MG TABLET PO SCH (19:59)
[2020-11-06] MEDS ORDERED: ORAJEL 7GM TUBE MM PRN (20:30)
[2020-11-06] MEDS ORDERED: ZOLPIDEM 5MG TABLET PO SCH (21:00)
[2020-11-06] MEDS ORDERED: MIDODRINE 5 MG TABLET PO SCH (21:00)
[2020-11-06] MEDS ORDERED: AMITRIPTYLINE 10 MG TABLET PO SCH (21:00)
[2020-11-06] MEDS: INSULIN LISPRO 100 UNITS/ML, PEN SQ-INSULIN SCH (22:00)
[2020-11-07 00:59] VITALS: BP 137/87
[2020-11-07] MEDS ORDERED: MORPHINE SULFATE 4 MG/ML, 1ML ONE (02:57)
[2020-11-07] MEDS: morphine SULFATE 10 MG/ML, 1ML IVPush PRN ×2 (03:02→15:15)
[2020-11-07] MEDS: ENOXAPARIN 40 MG/0.4 ML SQ SCH (03:03)
[2020-11-07 07:13] VITALS: BP 134/91
[2020-11-07] MEDS: INSULIN LISPRO 100 UNITS/ML, PEN SQ-INSULIN SCH ×3 (07:24→15:58)
[2020-11-07] MEDS ORDERED: LACTULOSE 10 GM/15 ML UDC PO SCH (09:00)
[2020-11-07] MEDS ORDERED: FAMOTIDINE 20 MG TABLET PO SCH (09:00)
[2020-11-07] MEDS ORDERED: FAMOTIDINE 40 MG TABLET ONE (09:14)
[2020-11-07] MEDS: AMOXICILLIN/CLAV 875-125MG TABLET PO SCH (09:19)
[2020-11-07] MEDS: BISACODYL 10 MG SUPP PR SCH ×2 (09:29→16:32)
[2020-11-07] MEDS: SENNA/DOCUSATE TABLET PO SCH (09:31)
[2020-11-07 10:25] LABS: BASOPHILS % (AUTO) 1 % (0-1); EOSINOPHILS % (AUTO) 3 % (1-7); LYMPHOCYTES % (AUTO) 27 % (22-44); MEAN CORPUSCULAR HEMOGLOBIN 29.2 pg (27.5-34.5); MEAN CORPUSCULAR HGB CONC 34.2 g/dL (33.2-36.2); MONOCYTES % (AUTO) 5 % (2-9); NEUTROPHILS % (AUTO) 64 % (42-75); PLATELET COUNT 297 x10^3/uL (130-400); RED BLOOD COUNT 4.92 x10^6/uL (4.38-5.82); RED CELL DISTRIBUTION WIDTH 14.4 % (9.4-14.8)
[2020-11-07 10:28] LABS: MD NO
[2020-11-07 10:34] LABS: CHLORIDE 107 mmol/L (98-107)
[2020-11-07 10:41] LABS: ALANINE AMINOTRANSFERASE 30 U/L (12-78); ALBUMIN 3.5 g/dL (3.4-5.0); ALKALINE PHOSPHATASE 81 U/L (45-117); ANION GAP 6 mmol/L (5-15); BILIRUBIN,TOTAL 0.3 mg/dL (0.2-1.0); CALCIUM 8.8 mg/dL (8.5-10.1); CREATININE 0.89 mg/dL (0.7-1.3)
[2020-11-07 12:53] VITALS: BP 150/103
[2020-11-07 15:16] VITALS: BP 167/106
[2020-11-07 15:49] VITALS: BP 148/79
[2020-11-07] MEDS ORDERED: BENZOCAINE MM (16:07)
[2020-11-07] MEDS ORDERED: AMOX1TAB12 PO (16:07)
[2020-11-07 17:32] VITALS: BP 146/95
[2020-11-07] MEDS ORDERED: METHYLNALTREXONE 12 MG/0.6 ML SYR SQ ONE (18:30)
== END 2020-11-07 18:14 | disposition home or self-care (01) | DRG 91 ==
LOC: ED 23:49 → EDIP 11-06 03:00 → 4NW 11-06 03:53
PROVIDERS: ADMIT Family Medicine; ATTEND Hospitalist
PROC: 0T9B70Z Drainage of Bladder with Drainage Device, Via Natural or Artificial Opening (ICD-10-PCS; principal; 2020-11-06)
DX: G92 Toxic encephalopathy (principal); G82.54 Quadriplegia, C5-C7 incomplete; F11.20 Opioid dependence, uncomplicated; N39.0 Urinary tract infection, site not specified; E11.9 Type 2 diabetes mellitus without complications; K04.7 Periapical abscess without sinus; G89.29 Other chronic pain; K59.03 Drug induced constipation; N31.9 Neuromuscular dysfunction of bladder, unspecified; T40.605A Adverse effect of unspecified narcotics, initial encounter; Y92.89 Other specified places as the place of occurrence of the external cause; Z79.84 Long term (current) use of oral hypoglycemic drugs; F17.210 Nicotine dependence, cigarettes, uncomplicated
CPT/HCPCS: 36415; 70450; 71045; 74177; 80053; 81001; 82140; 82962; 83605; 83690; 83735; 84100; 84145; 85025; 87040; 87086; 87106; 93005; 96361; 96374; 96375; 96376; 99285; G0378; J1650; J1956; J2405; Q9967; J1815; J2270; J7030

== ENCOUNTER 2020-11-15 23:30 | Emergency (ER) | payer MEDICAID ==
[~2020-11-15] VITALS: Ht 165.1 cm; Wt 90.0 kg
[~2020-11-15 23:30] MED LIST changes: +AMOX1TAB12 PO; +BENZOCAINE MM
[2020-11-16 00:26] LABS: BASOPHILS % (AUTO) 1 % (0-1); EOSINOPHILS % (AUTO) 5 % (1-7); LYMPHOCYTES % (AUTO) 27 % (22-44); MEAN CORPUSCULAR HEMOGLOBIN 29.3 pg (27.5-34.5); MEAN PLATELET VOLUME 7.5 fL (7.4-10.4); MONOCYTES % (AUTO) 7 % (2-9); NEUTROPHILS % (AUTO) 60 % (42-75); PLATELET COUNT 292 x10^3/uL (130-400); RED BLOOD COUNT 4.92 x10^6/uL (4.38-5.82)
[2020-11-16 00:29] LABS: MD NO
[2020-11-16 00:38] LABS: ALANINE AMINOTRANSFERASE 36 U/L (12-78); ALBUMIN 3.8 g/dL (3.4-5.0); ANION GAP 8 mmol/L (5-15); CALCIUM 9.1 mg/dL (8.5-10.1); CHLORIDE 110 mmol/L (98-107)
[2020-11-16 00:42] LABS: ALKALINE PHOSPHATASE 90 U/L (45-117); BILIRUBIN,TOTAL 0.2 mg/dL (0.2-1.0); TOTAL PROTEIN 7.2 g/dL (6.4-8.2); TROPONIN I < 0.015 ng/mL (0.000-0.045)
--- NOTE | 2020-11-16 01:00 | NUR ---
PT LIFTED FROM WHEELCHAIR TO ER BED BY LIFT.
[2020-11-16 02:51] VITALS: BP 144/92
--- NOTE | 2020-11-16 02:57 | NUR ---
PT TOLD MEDICAL CLAIMS REPRESENTATIVE THAT "HE WANTED TO LEAVE.
--- NOTE | 2020-11-16 03:21 | NUR ---
PT REQUESTED A "STONG PAIN MED FOR HIS FEET" PROVIDER NOTIFIED
--- NOTE | 2020-11-16 03:25 | NUR ---
BREAK RN: PT. TO BE D/C HOME.
--- NOTE | 2020-11-16 03:42 | NUR ---
LIFT USED TO ASSIST PT. BACK INTO SUAD W/C FOR D/C.
== END 2020-11-16 03:55 | disposition home or self-care (01) ==
LOC: ED 23:57
DX: G89.29 Other chronic pain (principal); M79.672 Pain in left foot; M79.671 Pain in right foot; R06.00 Dyspnea, unspecified; R06.02 Shortness of breath; E11.9 Type 2 diabetes mellitus without complications; F17.210 Nicotine dependence, cigarettes, uncomplicated
CPT/HCPCS: 36415; 71045; 80053; 83880; 84484; 85025; 93005; 99406

== ENCOUNTER 2020-12-29 12:40 | Emergency (ER) | payer MEDICAID ==
[~2020-12-29] VITALS: Ht 165.1 cm; Wt 85.0 kg
--- NOTE | 2020-12-29 13:22 | NUR ---
PT TO ROOM TR04 W/ C/O MID EPIGASTRIC ABD PAIN. PT STATES HE FEELS HIS STOMACH SQUEEZING AND RELAXING AND STATES HE FEELS LIKE SOMETHING IS MOVING IN THERE. DENIES ANY N/V. STATES DIARRHEA AT TIMES BUT NOT TODAY. PT NOTED TO HAVE ROUNDED AND SEMI FIRM ABD. PT RESTING ON GURNEY. NADN. VSS. PT INITIALLY BROUGHT TO ED FOR HOTN. PT NOTED TO BE LOW TO MID 100'S SBP IN TR04.
--- NOTE | 2020-12-29 13:28 | NUR ---
FIRST CONTACT. REPORT RECIVED FROM MARK ANTHONY
[2020-12-29] MEDS ORDERED: SODIUM CHLORIDE 0.9%, 500ML IVBOLUS ONE (13:30)
[2020-12-29] MEDS ORDERED: SODIUM CHLORIDE FLUSH 10ML SYR IVF ONE (13:30)
--- NOTE | 2020-12-29 13:32 | NUR ---
REPORT GIVEN TO JIM ODELL. PT MOVED TO ROOM 21 W/ ALL PERSONAL BELONGINGS.
[2020-12-29 13:35] LABS: BASOPHILS % (AUTO) 1 % (0-1); EOSINOPHILS % (AUTO) 3 % (1-7); LYMPHOCYTES % (AUTO) 20 % (22-44); MEAN CORPUSCULAR HEMOGLOBIN 28.7 pg (27.5-34.5); MEAN CORPUSCULAR HGB CONC 33.9 g/dL (33.2-36.2); MONOCYTES % (AUTO) 5 % (2-9); NEUTROPHILS % (AUTO) 72 % (42-75); PLATELET COUNT 330 x10^3/uL (130-400); RED BLOOD COUNT 5.29 x10^6/uL (4.38-5.82); RED CELL DISTRIBUTION WIDTH 14.6 % (9.4-14.8)
[2020-12-29 13:39] LABS: MD NO
--- NOTE | 2020-12-29 13:43 | NUR ---
STARTED PIV AND FLUIDS
[2020-12-29 13:47] LABS: ALANINE AMINOTRANSFERASE 36 U/L (12-78); ALBUMIN 3.8 g/dL (3.4-5.0); ANION GAP 7 mmol/L (5-15); CALCIUM 8.7 mg/dL (8.5-10.1); CHLORIDE 112 mmol/L (98-107); CREATININE 1.05 mg/dL (0.7-1.3)
[2020-12-29 13:50] LABS: ALKALINE PHOSPHATASE 89 U/L (45-117); BILIRUBIN,TOTAL 0.2 mg/dL (0.2-1.0); TOTAL PROTEIN 7.2 g/dL (6.4-8.2)
--- NOTE | 2020-12-29 14:09 | NUR ---
PT LAYING IN BED WATCHING TV.
[2020-12-29] MEDS ORDERED: OMNIPAQUE 350 MG/ML, 100ML BOTTLE ONE (14:32)
[2020-12-29 15:46] VITALS: BP 140/86
--- NOTE | 2020-12-29 15:47 | NUR ---
Patient given discharge instructions and they have confirmed that they understand the instructions. Patient assisted into power wheelchair by this RN and 3 ED techs. All patient belonings gathered and taken with patient. patient wheeled himself out of ED in stable condition to private vehicle.
== END 2020-12-29 15:48 | disposition home or self-care (01) ==
LOC: ED 15:30
DX: R10.84 Generalized abdominal pain (principal); R94.31 Abnormal electrocardiogram [ECG] [EKG]; E11.9 Type 2 diabetes mellitus without complications; F17.200 Nicotine dependence, unspecified, uncomplicated
CPT/HCPCS: 36415; 74177; 80053; 83690; 85025; 93005; 96360; 99285; J7040; Q9967

== ENCOUNTER 2021-03-02 13:41 | Emergency (ER) | payer MEDICAID ==
[~2021-03-02] VITALS: Ht 165.1 cm; Wt 78.0 kg
--- NOTE | 2021-03-02 14:06 | NUR ---
PT TO ROOM, CHANGED INTO GOWN, MONITORS IN PLACE. CALL LIGHT WITHIN REACH
--- NOTE | 2021-03-02 14:34 | NUR ---
PT TOLERATED HAND IRRIGATION WELL. CRUZ PATENT AND ABLE TO DRAIN TO GRAVITY. FLUSHED WITH 600 ML STERILE WATER, OUTPUT 750ML WITH URINE. SITE CARE PERFORMED & GAUZE PLACED. CLAMPED TO OBTAIN URINE SAMPLE.
--- NOTE | 2021-03-02 14:56 | NUR ---
PT SITTING CALMLY ON [place], NADN/VSS. CALL LIGHT WITHIN REACH. NO NEEDS AT THIS TIME
[2021-03-02 15:46] VITALS: BP 126/87
--- NOTE | 2021-03-02 15:47 | NUR ---
PT SLEEPING ON GURNEY, RESPIRATIONS EVEN AND UNLABORED. RESPONDS TO VERBAL STIMULI. NADN/VSS. CALL LIGHT WITHIN REACH
[2021-03-02 15:54] LABS: MICROSCOPIC AUTO
[2021-03-02] MEDS ORDERED: LEVOFLOXACIN 250 MG TABLET PO ONE (16:30)
--- NOTE | 2021-03-02 17:12 | NUR ---
Patient given discharge instructions and they have confirmed that they understand the instructions. Patient ambulatory with steady gait.
== END 2021-03-02 17:14 | disposition home or self-care (01) ==
LOC: ED 16:14
DX: T82.41XA Breakdown (mechanical) of vascular dialysis catheter, initial encounter (principal); N30.00 Acute cystitis without hematuria
CPT/HCPCS: 81001; 87086; 99284

== ENCOUNTER 2021-03-14 17:15 | Emergency (ER) | payer MEDICAID ==
[~2021-03-14] VITALS: Ht 167.6 cm; Wt 77.3 kg
--- NOTE | 2021-03-14 17:31 | NUR ---
ERP AT NOW.
--- NOTE | 2021-03-14 18:26 | NUR ---
PT WATCHING TV. REQUESTING PAIN MEDICATION; ERP NOTIFIED.
[2021-03-14] MEDS ORDERED: OXYcodone/APAP 5/325MG TABLET PO ONE (19:00)
[2021-03-14] MEDS ORDERED: METHOCARBAMOL 750 MG TABLET PO ONE (19:00)
[2021-03-14] MEDS ORDERED: OXYcodone/APAP 5/325MG TABLET ONE (19:07)
[2021-03-14] MEDS ORDERED: METHOCARBAMOL 750 MG TABLET ONE (19:07)
--- NOTE | 2021-03-14 19:12 | NUR ---
C-COLLAR WAS REMOVED BY ER LYNNE. PT MEDICATED PER ORDERS. STATES HIS DAUGHTER IS ON HER WAY TO PICK HIM UP.
[2021-03-14 19:14] VITALS: BP 128/77
--- NOTE | 2021-03-14 19:43 | NUR ---
D/C INSTRUCTIONS, MEDS & F/U APPT RV'WD WITH PT AND DAUGHTER, THEY VERBALIZE UNDERSTANDING. RX GIVEN X2. INSTRUCTED PT TO RETURN TO ED OR F/U WITH NEUROLOGY IF SYMPTOMS NOT IMPROVING. ED TECHS ASSISTED PT OUT OF GURNEY AND INTO POWER CHAIR VIA SHAYAN LIFT. PT LEFT ED WITH DAUGHTER VIA OWN POWER CHAIR. Addendum: 03/14/21 at [address] RESULTS PROVIDED TO PT & DAUGHTER.
== END 2021-03-14 19:46 | disposition home or self-care (01) ==
LOC: ED 19:30
DX: S29.012A Strain of muscle and tendon of back wall of thorax, initial encounter (principal); S16.1XXA Strain of muscle, fascia and tendon at neck level, initial encounter; S09.90XA Unspecified injury of head, initial encounter; E11.9 Type 2 diabetes mellitus without complications; W07.XXXA Fall from chair, initial encounter; Y93.89 Activity, other specified; Y92.89 Other specified places as the place of occurrence of the external cause; Y99.8 Other external cause status
CPT/HCPCS: 70450; 72125; 72128; 99285

== ENCOUNTER 2021-04-06 18:10 | Emergency (ER) | payer MEDICAID ==
[~2021-04-06] VITALS: Ht 165.1 cm; Wt 80.0 kg
--- NOTE | 2021-04-06 18:52 | NUR ---
REPORT TO BASHIR FERNANDEZ
--- NOTE | 2021-04-06 19:00 | NUR ---
PT MOVED FROM WHEELCHAIR TO GURNEY VIA SHAYAN, PT TOLERATED WELL. PT RESTING ON GURNEY COMFORTABLY.
[2021-04-06] MEDS ORDERED: NEOSPORIN OINT. PKT 1 PACKET ONE (20:14)
[2021-04-06 20:22] VITALS: BP 177/101
[2021-04-06] MEDS ORDERED: BACLOFEN 10 MG TABLET PO ONE (20:30)
--- NOTE | 2021-04-06 20:30 | NUR ---
PT WOUND CARE DONE AND PAD PLACED. PT GIVEN DONUT CUSHION FOR WHEELCHAIR.
--- NOTE | 2021-04-06 21:05 | NUR ---
PT MOVED FROM GURNEY TO WHEELCHAIR VIA SHAYAN, PT IN WHEELCHAIR COMFORTABLY.
--- NOTE | 2021-04-06 21:12 | NUR ---
Patient given discharge instructions and they have confirmed that they understand the instructions. Patient left in his wheelchair with no s/s of distress
== END 2021-04-06 21:14 | disposition home or self-care (01) ==
LOC: ED 19:12
DX: L89.312 Pressure ulcer of right buttock, stage 2 (principal); L02.33 Carbuncle of buttock; F17.210 Nicotine dependence, cigarettes, uncomplicated; E11.9 Type 2 diabetes mellitus without complications
CPT/HCPCS: 99283; 99406

== ENCOUNTER 2021-05-10 19:23 | Emergency (ER) | payer MEDICAID ==
[~2021-05-10] VITALS: Ht 177.8 cm; Wt 80.0 kg
[2021-05-10 19:25] VITALS: BP 163/105
--- NOTE | 2021-05-10 19:37 | NUR ---
CODY GOLDEN FROM HOME FOR PAIN MEDICATION COVERAGE. PT HAS CHRONIC PAIN DUE TO INJURY AND MEDICATIONS ARRIVE TOMORROW AT 1000. PT'S PAIN IS TOO GREAT TO WAIT, PER EMS VIA DAUGHTER, WHO PT LIVES WITH. DAUGHTER'S PHONE NUMBER IS [phone]. PER EMS, DAUGHTER IS ON HER WAY TO THE ED. HOB TO LEVEL OF COMFORT FOR PT. SIDE RAILS UP, CALL LIGHT IN REACH.
--- NOTE | 2021-05-10 20:05 | NUR ---
REPORT FROM DARRELL FERNANDEZ
[2021-05-10] MEDS ORDERED: OXYcodone/APAP 10/325MG TABLET ONE (20:23)
[2021-05-10] MEDS ORDERED: OxyconTIN ER 10 MG TAB.ER PO ONE (20:30)
[2021-05-10] MEDS ORDERED: OXYcodone/APAP 10/325MG TABLET PO ONE (21:00)
--- NOTE | 2021-05-10 21:14 | NUR ---
PT MEDICATED PER MAR, TALKED TO FAMILY MEMBER ABOUT [facility] AND THEY STATED THAT HE USUALLY IS TRANSPORTED VIA [facility]. MYRA NOTIFIED.
--- NOTE | 2021-05-11 00:33 | NUR ---
PT MADE AWARE OF UNKNOWN WAIT TIME FOR EMS
--- NOTE | 2021-05-11 01:45 | NUR ---
Daughter arived to ED with wheelchair to send pt home with taxi voucher
== END 2021-05-11 01:57 | disposition home or self-care (01) ==
LOC: ED 22:41
DX: E11.9 Type 2 diabetes mellitus without complications (principal); Z76.0 Encounter for issue of repeat prescription; F17.200 Nicotine dependence, unspecified, uncomplicated
CPT/HCPCS: 99283

== ENCOUNTER 2021-05-11 06:27 | Emergency (ER) | payer MEDICAID ==
[~2021-05-11] VITALS: Ht 167.6 cm; Wt 80.0 kg
--- NOTE | 2021-05-11 06:46 | NUR ---
PT PRESENTS TO THE ED WITH NECK PAIN. PT WAS HERE LAST NIGHT FOR PAIN MEDICATION, BUT THE PHARMACY DOESN'T OPEN UNTIL 9, AND THE PAIN IS BACK AND HE COULD NOT WAIT UNTIL THEN. PT IN WHEELCHAIR.
[2021-05-11] MEDS ORDERED: OXYcodone/APAP 10/325MG TABLET ONE (07:12)
[2021-05-11] MEDS ORDERED: OXYcodone/APAP 10/325MG TABLET PO ONE (07:30)
--- NOTE | 2021-05-11 07:39 | NUR ---
PT REC'VD DISCHARGE INSTRUCTIONS AND EDUCATION. PT HAD NO FURTHER QUESTIONS. PT IN PERSONAL WHEELCHAIR TO DC AREA.
[2021-05-11 07:41] VITALS: BP 160/106
== END 2021-05-11 07:47 | disposition home or self-care (01) ==
LOC: ED 07:10
DX: M54.2 Cervicalgia (principal); G89.29 Other chronic pain; Z76.0 Encounter for issue of repeat prescription; E11.9 Type 2 diabetes mellitus without complications
CPT/HCPCS: 99283

== ENCOUNTER 2021-06-15 10:38 | Emergency (ER) | payer MEDICAID ==
[~2021-06-15] VITALS: Ht 170.2 cm; Wt 85.0 kg
[~2021-06-15 10:38] MED LIST changes: +OXYC10TA6 PO
--- NOTE | 2021-06-15 10:47 | NUR ---
PT BROUGHT IN BY [facility] FROM HOME WITH CHIEF COMPLAINT OF "NOT FEELING WELL FOR FEW DAYS" PER EMS UPON ARRIVAL PT REPORTED HTN, PLACED HOME NITRO PASTE ON CHEST. EMS FOUND PT 90-100/50, A&OX4, SACRAL WOUND PRESENT. HX PARAPLEGIA
--- NOTE | 2021-06-15 10:49 | NUR ---
REPORT TO SOPHIA FERNANDEZ
[2021-06-15 11:24] LABS: BASOPHILS % (AUTO) 1 % (0-1); EOSINOPHILS % (AUTO) 2 % (1-7); LYMPHOCYTES % (AUTO) 15 % (22-44); MEAN CORPUSCULAR HEMOGLOBIN 28.5 pg (27.5-34.5); MEAN PLATELET VOLUME 6.6 fL (7.4-10.4); MONOCYTES % (AUTO) 5 % (2-9); NEUTROPHILS % (AUTO) 77 % (42-75); PLATELET COUNT 326 x10^3/uL (130-400); RED CELL DISTRIBUTION WIDTH 14.5 % (9.4-14.8)
[2021-06-15] MEDS ORDERED: SODIUM CHLORIDE 0.9% 1,000ML IVBOLUS ONE (11:30)
[2021-06-15 11:34] LABS: ALANINE AMINOTRANSFERASE 28 U/L (12-78); ALBUMIN 3.1 g/dL (3.4-5.0); ANION GAP 8 mmol/L (5-15); CALCIUM 8.1 mg/dL (8.5-10.1); CHLORIDE 108 mmol/L (98-107); CREATININE 0.73 mg/dL (0.7-1.3)
[2021-06-15 11:38] LABS: ALKALINE PHOSPHATASE 100 U/L (45-117); BILIRUBIN,TOTAL 0.4 mg/dL (0.2-1.0); TOTAL PROTEIN 6.8 g/dL (6.4-8.2); TROPONIN I < 0.015 ng/mL (0.000-0.045)
--- NOTE | 2021-06-15 11:56 | NUR ---
SUPRAPUBIC CATHETER CHANGED OUT BY ERP DR. GIRALDO. PT TOLERATED WELL.
--- NOTE | 2021-06-15 11:58 | NUR ---
PT RESTING ON GURNEY. NADN. DEAN.
--- NOTE | 2021-06-15 13:01 | NUR ---
Break RN note: Pt resting in bed with eyes closed, resp even and unlabored, NADN.
[2021-06-15 13:05] LABS: MICROSCOPIC INDICATED
--- NOTE | 2021-06-15 13:59 | NUR ---
PT RESTING ON GURNEY. NADN. DEAN.
--- NOTE | 2021-06-15 14:36 | NUR ---
REPORT GIVEN TO JIM MCNEAL.
[2021-06-15 15:31] VITALS: BP 134/88
--- NOTE | 2021-06-15 15:32 | NUR ---
PT LIFTED TO PT WHEEL CHAIR WITH TRANSPORT STAFF AND RADIOLOGY RN HELP. PT URINE BAG SECURED TO WHEEL CHAIR. PT STATED HE WAS GOOD AND NOT GOING TO SLIP. PT CARE TRASFERED TO [employer].
[2021-07-27] MEDS ORDERED: BACL20TA PO (13:41)
[2021-07-27] MEDS ORDERED: OXYB10TA26 PO (13:41)
== END 2021-06-15 15:35 | disposition home or self-care (01) ==
LOC: ED 10:49
DX: I95.9 Hypotension, unspecified (principal); G83.9 Paralytic syndrome, unspecified; R82.81 Pyuria; E11.9 Type 2 diabetes mellitus without complications; F17.200 Nicotine dependence, unspecified, uncomplicated
CPT/HCPCS: 36415; 51702; 80053; 81001; 84484; 85025; 87070; 87075; 87077; 87086; 87186; 87205; 93005; 96360; 99285; J7030